=== PATIENT | female | born 1990 | race Caucasian/White ===

== ENCOUNTER → 2022-10-04 17:44 | Outpatient (CLI) | payer OTHER, SELFPAY ==
[2022-10-04 18:19] LABS: Alanine Aminotransferase 40 IU/L (<35); Albumin 4.5 g/dL (3.5-5.0); Albumin Globulin Ratio 1.4 (1.0-2.8); Alkaline Phosphatase 57 U/L (38-126); Aspartate Aminotransferase 51 IU/L (14-36); Bilirubin Total 0.5 mg/dL (0.2-1.3); Blood Urea Nitrogen 19 mg/dL (7-17); Calcium 9.5 mg/dL (8.4-10.2); Carbon Dioxide 29 mmol/L (22-32); Chloride 99 mmol/L (98-107); Estimated Glomerular Filt Rate > 60 mL/min (>60); Globulin 3.3 g/dL (1.7-4.1); Glucose 100 mg/dL (70-100); HEMOLYSIS 22 (0-50); Sodium 135 mmol/L (137-145); Total Protein 7.8 g/dL (6.3-8.2)
[2022-10-04 18:29] LABS: Potassium 5.4 mmol/L (3.4-5.1)
== END ==
PROVIDERS: Referring Provider Urology; Visit Provider Physician Assistant
DX: R10.11 Right upper quadrant pain (principal)
CPT/HCPCS: 36415; 80053